=== PATIENT | male | born 1995 | race Caucasian/White ===

== ENCOUNTER 2020-08-24 05:06 | Emergency (ER) | payer SELFPAY ==
[~2020-08-24] VITALS: Ht 182.9 cm; Wt 76.9 kg
[2020-08-24] MEDS ORDERED: ONDANSETRON HCL 4MG/2ML INJ IV STA (05:48)
[2020-08-24 05:54] LABS: BASOPHILS % 0.5 % (0.0-2.0); EOSINOPHILS % 2.2 % (0.0-5.0); HEMATOCRIT. 45.9 % (42.0-52.0); HEMOGLOBIN. 15.5 g/dL (14.0-18.0); LYMPHOCYTES % 26.9 % (20.0-50.0); MEAN CORPUSCULAR HEMOGLOBIN 29.7 pg (28.0-32.0); MEAN CORPUSCULAR VOLUME 88.1 fL (80.0-94.0); MEAN PLATELET VOLUME 8.5 fl (7.4-10.4); MONOCYTES % 6.7 % (2.0-8.0); NEUTROPHILS % 63.7 % (40.0-76.0); PLATELET 244 x1000/uL (130-400); RED BLOOD CELL COUNT 5.21 mill/uL (4.7-6.1); RED CELL DISTRIBUTION WIDTH 12.8 % (11.6-14.6)
[2020-08-24 05:58] LABS: CHLORIDE 102 mEq/L (98-107)
[2020-08-24] MEDS ORDERED: SODIUM CHLORIDE 0.9% 1,000 ML IV ONE (06:00)
[2020-08-24 06:06] LABS: ETHANOL BLOOD < 10 mg/dL
[2020-08-24] MEDS ORDERED: METOCLOPRAMIDE HCL 10MG/2ML VIAL IV ONE (06:45)
[2020-08-24] MEDS ORDERED: DIPH25CA83 PO (07:50)
[2020-08-24] MEDS ORDERED: ONDA4TAB5 PO (07:50)
[2020-08-24] MEDS ORDERED: TOPUD PO (07:50)
[2020-08-24] MEDS ORDERED: DIPHENHYDRAMINE 25MG CAPSULE PO ONE (08:00)
[2020-08-24] MEDS ORDERED: CIPR500T5 PO (08:07)
[2020-08-24] MEDS ORDERED: METR500T PO (08:07)
[2020-08-24] MEDS ORDERED: KETOROLAC 30MG/ML VIAL IV ONE (08:15)
[2020-08-24 08:30] VITALS: BP 123/72
== END 2020-08-24 05:55 | disposition home or self-care (01) ==
LOC: ER 05:06
DX: K52.9 Noninfective gastroenteritis and colitis, unspecified (principal); R10.9 Unspecified abdominal pain; R11.2 Nausea with vomiting, unspecified
CPT/HCPCS: 36415; 74176; 80053; 80320; 83690; 85025; 93005; 96361; 96374; 96375; 99285; J1885; J2405; J2765; J7030; G0480